=== PATIENT | female | born 1945 | race Caucasian/White ===

== ENCOUNTER 2017-01-10 21:40 | Inpatient (IN) | payer MEDICARE, OTHER ==
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
[~2017-01-10 21:40] MED LIST: *UNABLE1; ACET500CAP PO; ATV.5 PO; B12250T PO; BACDS PO; BACTROCR TOP; BEN25 PO; BIST PO; BUTRANS 15 MCG TOP; BUTRANS1 EACH TOP; CALMOSEPTINE TOP; CALTRAT600 PO; CAT1 PO; COLCH6 PO; COLCRYS0.6 MG PO; CONSTULOSE PO; COZAAR100 MG PO; DEPAK250ER PO; DEPAKOT250 PO; DEPAKOT500 PO; DSS PO; DUONEB INH; DURA25 TOP; ENDOCET1 TA3 PO; FERROUS SULF325 M1 PO; FISH OIL OTC PO; FLORASTOR250 MG PO; HCTZ25B PO; HYDROCHLOROT50 MG PO; K500 PO; KDUR10 PO; L20 PO; L40 PO; LEXAPRO20 PO; LIDO5OINT TOP; LOP50 PO; NABUMETONE750 MG PO; NITROSTAT0.4 MG SL; NORCO1 TA1 PO; NORCO1 TA2 PO; NORV10 PO; NORV5 PO; NYSTOP100000 MG TOP; OXYCON10 PO; PEP20 PO; PERCOCET1 TA4 PO; PRADAXA150 MG PO; PRENAVITE PO; PRENAVITE PR PO; PRILO PO; PRIN10 PO; PRIN20 PO; PROBIOTIC BLEND PO; PROTONIX PO; REFRESH OPH; SILVADENE1 % TOP; SPIRO25 PO; SPIRO50 PO; TOPROL XL200 MG PO; ULTRAM50 PO; VITAMIN B-121000 MC1 SL; VITAMIN B-122500 MCG SL; VITAMIN D OTC PO; VITAMIN D31000 UNIT PO; VITC500 PO; WELLSR150 PO; Z100 PO; [UNRECOGNIZED DRUG - OTHER] PO
[2017-01-10 22:05] LABS: BASOPHILS 0.3 %; BASOPHILS ABSOLUTE 0.03 10/3/uL (0.0-0.16); IMMATURE GRANULOCYTES 0.3 %; IMMATURE GRANULOCYTES ABSOLUTE 0.03 10/3/uL (0.0-0.11); LYMPHOCYTES 18.6 %; LYMPHOCYTES ABSOLUTE 2.22 10/3/uL (0.67-4.30); MEAN CORPUS HGB CONC 33.6 g/dL (32.0-36.0); MEAN CORPUSCULAR HEMOGLOB 30.6 pg (26.0-34.0); MEAN PLATELET VOLUME 10.5 fL (9.2-13.0); MONOCYTES 11.3 %; MONOCYTES ABSOLUTE 1.35 10/3/uL (0.21-1.20); NEUTROPHILS 64.5 %; NEUTROPHILS ABSOLUTE 7.72 10/3/uL (2.02-8.40); PLATELET COUNT 203 10/3/uL (150-400); RBC DISTRIBUTION WIDTH 13.3 % (12.0-16.0)
[2017-01-10 22:10] LABS: ER CBC TAT 0 Hrs 13 Mins; HEMATOCRIT 41.7 % (36.0-48.0); MANUAL DIFF NO %; MEAN CORPUSCULAR VOLUME 91.2 fL (80-100); RED CELL COUNT 4.57 10/6/uL (4.0-5.6)
[2017-01-10 22:22] LABS: C-REACTIVE PROTEIN 19.4 MG/L (<8.0); CALCIUM, SERUM 8.9 MG/DL (8.5-10.4); CREATININE 0.94 MG/DL (0.55-1.02); GFR AFRICAN AMERICAN 71 ML/MIN (>=60); GFR NON AFRICAN AMERICAN 61 ML/MIN (>=60); POTASSIUM, SERUM 4.1 MMOL/L (3.5-5.3); SGOT(AST) 13 U/L (5-40); SGPT(ALT) 22 U/L (5-65); SODIUM, SERUM 137 MMOL/L (135-148); TOTAL BILIRUBIN 0.6 MG/DL (0-1.2); TOTAL PROTEIN 7.7 G/DL (6.0-8.5)
[2017-01-10 22:23] LABS: A/G RATIO 0.7 (0.7-1.9); ALBUMIN 3.1 G/DL (3.5-5.0); ALKALINE PHOSPHATASE 75 U/L (45-117); BUN (BLOOD UREA NITROGEN) 30 MG/DL (6-23); CHLORIDE, SERUM 100 MMOL/L (96-112); CO2 (CARBON DIOXIDE) 31 MMOL/L (24-34); GLOBULIN 4.6 G/DL (2.5-4.1); GLUCOSE, SERUM 107 MG/DL (60-99)
[2017-01-10] MEDS ORDERED: VITAMIN D31000 UNIT PO (23:07)
[2017-01-10] MEDS ORDERED: LEXAPRO20 PO (23:07)
[2017-01-10] MEDS ORDERED: FLORASTOR250 MG PO (23:07)
[2017-01-10] MEDS ORDERED: DEPAKOT250 PO (23:07)
[2017-01-10] MEDS ORDERED: PRENAVITE PO (23:07)
[2017-01-10] MEDS ORDERED: CALTRAT600 PO (23:08)
[2017-01-10] MEDS ORDERED: VITC500 PO (23:08)
[2017-01-10] MEDS ORDERED: ENULOSE PO (23:08)
[2017-01-10] MEDS ORDERED: FERROUS SULF325 M1 PO (23:09)
[2017-01-10] MEDS ORDERED: MAGOX4 PO (23:09)
[2017-01-10] MEDS ORDERED: PRILO PO (23:09)
[2017-01-10] MEDS ORDERED: SPIRO50 PO (23:09)
[2017-01-10] MEDS ORDERED: DEMA10T PO (23:10)
[2017-01-10] MEDS ORDERED: PERCOCET 10/3251 TAB PO ×2 (23:10→23:11)
[2017-01-10] MEDS ORDERED: KLOR-CON M2020 MEQ PO (23:10)
[2017-01-10] MEDS ORDERED: COLCRYS0.6 MG PO (23:10)
[2017-01-10] MEDS ORDERED: DUONEB INH (23:11)
[2017-01-10] MEDS ORDERED: ATV.5 PO (23:11)
[2017-01-10] MEDS ORDERED: LAC-HYDRIN TOP (23:12)
[2017-01-10] MEDS ORDERED: NYSTATPOW TOP (23:13)
[2017-01-11 06:50] LABS: BASOPHILS 0 %; EOSINOPHILS 0 %; HEMATOCRIT 38.4 % (36.0-48.0); HEMOGLOBIN 12.9 g/dL (12.0-16.0); IMMATURE GRANULOCYTES 0.2 %; IMMATURE GRANULOCYTES ABSOLUTE 0.01 10/3/uL (0.0-0.11); LYMPHOCYTES 15.9 %; LYMPHOCYTES ABSOLUTE 1.04 10/3/uL (0.67-4.30); MANUAL DIFF NO %; MEAN CORPUS HGB CONC 33.6 g/dL (32.0-36.0); MEAN CORPUSCULAR VOLUME 89.3 fL (80-100); MEAN PLATELET VOLUME 10.6 fL (9.2-13.0); MONOCYTES 0.6 %; MONOCYTES ABSOLUTE 0.04 10/3/uL (0.21-1.20); NEUTROPHILS 83.3 %; NEUTROPHILS ABSOLUTE 5.44 10/3/uL (2.02-8.40); PLATELET COUNT 204 10/3/uL (150-400); RBC DISTRIBUTION WIDTH 13.3 % (12.0-16.0); WHITE BLOOD CELLS 6.5 10/3/uL (4.5-10.5)
[2017-01-11 07:46] LABS: BUN (BLOOD UREA NITROGEN) 28 MG/DL (6-23); C-REACTIVE PROTEIN 29.9 MG/L (<8.0); CALCIUM, SERUM 8.7 MG/DL (8.5-10.4); CHLORIDE, SERUM 101 MMOL/L (96-112); CO2 (CARBON DIOXIDE) 27 MMOL/L (24-34); CREATININE 0.79 MG/DL (0.55-1.02); GFR AFRICAN AMERICAN 87 ML/MIN (>=60); GFR NON AFRICAN AMERICAN 75 ML/MIN (>=60); GLUCOSE, SERUM 167 MG/DL (60-99); SODIUM, SERUM 138 MMOL/L (135-148)
[2017-01-11] MEDS ORDERED: PRADAXA150 MG PO (14:51)
[2017-01-12 07:49] LABS: BASOPHILS 0.1 %; BASOPHILS ABSOLUTE 0.01 10/3/uL (0.0-0.16); EOSINOPHILS 0.3 %; EOSINOPHILS ABSOLUTE 0.05 10/3/uL (0.0-0.53); HEMATOCRIT 40.8 % (36.0-48.0); IMMATURE GRANULOCYTES 0.3 %; IMMATURE GRANULOCYTES ABSOLUTE 0.04 10/3/uL (0.0-0.11); LYMPHOCYTES 15.6 %; LYMPHOCYTES ABSOLUTE 2.27 10/3/uL (0.67-4.30); MEAN CORPUS HGB CONC 34.3 g/dL (32.0-36.0); MEAN CORPUSCULAR HEMOGLOB 30.8 pg (26.0-34.0); MEAN CORPUSCULAR VOLUME 89.7 fL (80-100); MEAN PLATELET VOLUME 10.5 fL (9.2-13.0); MONOCYTES 9.8 %; MONOCYTES ABSOLUTE 1.43 10/3/uL (0.21-1.20); NEUTROPHILS 73.9 %; NEUTROPHILS ABSOLUTE 10.73 10/3/uL (2.02-8.40); PLATELET COUNT 229 10/3/uL (150-400); RED CELL COUNT 4.55 10/6/uL (4.0-5.6)
[2017-01-12 07:50] LABS: MANUAL DIFF NO %; WHITE BLOOD CELLS 14.5 10/3/uL (4.5-10.5)
[2017-01-12 07:59] LABS: BUN (BLOOD UREA NITROGEN) 29 MG/DL (6-23); CHLORIDE, SERUM 94 MMOL/L (96-112); CREATININE 0.79 MG/DL (0.55-1.02); GFR AFRICAN AMERICAN 87 ML/MIN (>=60); GFR NON AFRICAN AMERICAN 75 ML/MIN (>=60); POTASSIUM, SERUM 3.6 MMOL/L (3.5-5.3); SODIUM, SERUM 140 MMOL/L (135-148)
[2017-01-12 08:01] LABS: CO2 (CARBON DIOXIDE) 36 MMOL/L (24-34); GLUCOSE, SERUM 110 MG/DL (60-99)
[2017-01-14 07:40] LABS: BASOPHILS 0.4 %; BASOPHILS ABSOLUTE 0.04 10/3/uL (0.0-0.16); EOSINOPHILS 6.7 %; EOSINOPHILS ABSOLUTE 0.65 10/3/uL (0.0-0.53); HEMOGLOBIN 14.5 g/dL (12.0-16.0); IMMATURE GRANULOCYTES 0.5 %; IMMATURE GRANULOCYTES ABSOLUTE 0.05 10/3/uL (0.0-0.11); LYMPHOCYTES 30.4 %; LYMPHOCYTES ABSOLUTE 2.96 10/3/uL (0.67-4.30); MEAN CORPUSCULAR VOLUME 90.9 fL (80-100); MEAN PLATELET VOLUME 10.5 fL (9.2-13.0); MONOCYTES 13.1 %; MONOCYTES ABSOLUTE 1.27 10/3/uL (0.21-1.20); NEUTROPHILS 48.9 %; NEUTROPHILS ABSOLUTE 4.76 10/3/uL (2.02-8.40); PLATELET COUNT 218 10/3/uL (150-400); RBC DISTRIBUTION WIDTH 13.3 % (12.0-16.0); RED CELL COUNT 4.84 10/6/uL (4.0-5.6); WHITE BLOOD CELLS 9.7 10/3/uL (4.5-10.5)
[2017-01-14 07:42] LABS: MANUAL DIFF NO %
[2017-01-14 07:47] LABS: CALCIUM, SERUM 9.3 MG/DL (8.5-10.4); CHLORIDE, SERUM 87 MMOL/L (96-112); CO2 (CARBON DIOXIDE) 37 MMOL/L (24-34); CREATININE 1.01 MG/DL (0.55-1.02); GFR AFRICAN AMERICAN 65 ML/MIN (>=60); GFR NON AFRICAN AMERICAN 56 ML/MIN (>=60); GLUCOSE, SERUM 103 MG/DL (60-99); POTASSIUM, SERUM 3.9 MMOL/L (3.5-5.3); SODIUM, SERUM 136 MMOL/L (135-148)
[2017-01-14 07:48] LABS: BUN (BLOOD UREA NITROGEN) 41 MG/DL (6-23)
== END 2017-01-14 15:23 | DRG 603 ==
LOC: ER 21:40 → 4SO 22:00 → 5SO 01-11 01:27
PROVIDERS: Emergency Medicine; Hospitalist; Student in an Organized Health Care Education/Training Program
DX: L03.116 Cellulitis of left lower limb (principal); I48.92 Unspecified atrial flutter; Z68.43 Body mass index [BMI] 50.0-59.9, adult; I89.0 Lymphedema, not elsewhere classified; T50.995A Adverse effect of other drugs, medicaments and biological substances, initial encounter; F03.90 Unspecified dementia, unspecified severity, without behavioral disturbance, psychotic disturbance, mood disturbance, and anxiety; I48.2 Chronic atrial fibrillation; I87.2 Venous insufficiency (chronic) (peripheral); E66.01 Morbid (severe) obesity due to excess calories; L03.115 Cellulitis of right lower limb; F31.9 Bipolar disorder, unspecified; G47.33 Obstructive sleep apnea (adult) (pediatric); Z83.3 Family history of diabetes mellitus; Z80.3 Family history of malignant neoplasm of breast; Z88.0 Allergy status to penicillin; Z88.8 Allergy status to other drugs, medicaments and biological substances; Z88.1 Allergy status to other antibiotic agents; Z91.013 Allergy to seafood; Z79.899 Other long term (current) drug therapy; Z87.820 Personal history of traumatic brain injury
CPT/HCPCS: 71010; 80048; 80053; 83605; 83735; 85025; 86140; 87040; 96365; 96375; 99285; A9270-GY; J1200; J2920; J2930; J3370